=== PATIENT | male | born 1990 | race African-American/Black ===

== ENCOUNTER 2020-01-30 01:11 | Emergency (ER) | payer SELFPAY | END 2020-01-30 02:13 | disposition home or self-care (01) | LOC: ERS 01:11 | DX: K03.81 Cracked tooth (principal); M25.511 Pain in right shoulder; F17.210 Nicotine dependence, cigarettes, uncomplicated | CPT/HCPCS: 99283 ==

== ENCOUNTER 2020-03-21 16:30 | Emergency (ER) | payer SELFPAY | END 2020-03-21 16:57 | disposition home or self-care (01) | LOC: ERS 16:30 | DX: K08.89 Other specified disorders of teeth and supporting structures (principal); R22.0 Localized swelling, mass and lump, head; F17.210 Nicotine dependence, cigarettes, uncomplicated | CPT/HCPCS: 99282 ==